=== PATIENT | male | born 1965 | race Caucasian/White ===

== ENCOUNTER 2016-09-01 11:19 | Emergency (ER) | payer OTHER ==
[~2016-09-01] VITALS: Ht 165.1 cm; Wt 70.3 kg
[~2016-09-01 11:19] MED LIST: AMOXICILLIN500 M2 PO; CYCLOBENZAPRINE10 MG PO; HYDROCODONE BIT1 T11 PO; IBU800 MG PO; MOTRIN800 MG PO; NAPROSYN500 MG PO; NKHM
[2016-09-01] MEDS ORDERED: CIPRODEX 0.3%-7.5 ML OT (12:21)
== END 2016-09-01 13:50 | disposition home or self-care (01) ==
LOC: ED 11:19
DX: H66.91 Otitis media, unspecified, right ear (principal)

== ENCOUNTER 2016-12-12 10:11 | Emergency (ER) | payer OTHER ==
[~2016-12-12] VITALS: Ht 165.1 cm; Wt 70.3 kg
[~2016-12-12 10:11] MED LIST changes: +CIPRODEX 0.3%-7.5 ML OT
[2016-12-12] MEDS ORDERED: Motrin,Rufen800 MG PO (13:11)
== END 2016-12-12 13:09 | disposition home or self-care (01) ==
LOC: ED 10:11
DX: R07.89 Other chest pain (principal); R07.81 Pleurodynia; R05 Cough; F17.200 Nicotine dependence, unspecified, uncomplicated

== ENCOUNTER → 2017-01-12 | Outpatient (CLI) | payer OTHER ==
[~2017-01-12] MED LIST changes: +Motrin,Rufen800 MG PO
[2017-01-12 15:18] LABS: ALBUMIN 4.2 gm/dl (3.1-4.5); ALKALINE PHOSPHATASE 74 U/L (45-117); BUN 13 mg/dl (7-24); CHLORIDE 102 mmol/L (98-107); CHOLESTEROL 269 mg/dL (<200); CREATININE 0.99 mg/dL (0.70-1.30); HDL CHOLESTEROL 72 mg/dl (40-60); LDL CHOLESTEROL 127 mg/dL (9-159); POTASSIUM 3.5 mmol/L (3.5-5.1); SGOT/AST 20 IU/L (3-35); SGPT/ALT 43 U/L (12-78); SODIUM 138 mmol/L (136-145); TOTAL PROTEIN 7.6 gm/dL (6.4-8.2); TRIGLYCERIDES 348 mg/dl (<150); VLDL CHOLESTEROL 70 mg/dL (6-40)
== END | disposition home or self-care (01) ==
LOC: LAB 14:25
PROVIDERS: Nurse Practitioner
DX: Z12.5 Encounter for screening for malignant neoplasm of prostate (principal); I10 Essential (primary) hypertension

== ENCOUNTER → 2017-05-18 | Outpatient (CLI) | payer OTHER ==
[2017-05-18 13:11] LABS: ALBUMIN 4.1 gm/dl (3.1-4.5); BILIRUBIN, DIRECT 0.2 mg/dL (0.0-0.2); TOTAL PROTEIN 7.4 gm/dL (6.4-8.2)
[2017-05-18 13:17] LABS: THYROID STIM HORMONE (HS) 2.02 uIU/ml (0.358-4.75)
== END | disposition home or self-care (01) ==
LOC: LAB 12:14
PROVIDERS: Nurse Practitioner
DX: E03.9 Hypothyroidism, unspecified (principal); E78.5 Hyperlipidemia, unspecified

== ENCOUNTER 2017-08-24 10:46 | Emergency (ER) | payer OTHER ==
[~2017-08-24] VITALS: Ht 162.5 cm; Wt 65.8 kg
[2017-08-24 11:07] LABS: BASO % 0.3 % (0.0-1.0); EOS % 0.1 % (1.0-4.0); HEMATOCRIT 46.3 % (42.0-52.0); HEMOGLOBIN 15.8 g/dl (14.0-18.0); LYMPH # 1.8 10*3/uL (1.3-4.4); LYMPH % 26.3 % (27.0-41.0); MEAN CELL VOLUME 93.7 fl (80.0-94.0); MEAN CORPUSCULAR HGB CONC 34.1 g/dl (33.0-37.0); MEAN PLATELET VOLUME 10.1 fl (9.6-12.3); MONO # 0.5 10*3/uL (0.1-1.0); MONO % 6.9 % (3.0-9.0); NEUT # 4.4 10*3/uL (2.3-7.9); NEUT % 65.8 % (47.0-73.0); PLATELET COUNT AUTOMATED 254 10*3/uL (130-400); RED BLOOD COUNT 4.94 10*6/uL (4.50-5.90); RED CELL DISTRI WIDTH 12.3 % (0-14.5); WHITE BLOOD COUNT 6.7 10*3/uL (4.8-10.8)
[2017-08-24 11:23] LABS: ALBUMIN 4.3 gm/dl (3.1-4.5); ALKALINE PHOSPHATASE 69 U/L (45-117); BUN 13 mg/dl (7-24); CHLORIDE 103 mmol/L (98-107); CREATININE 1.06 mg/dL (0.70-1.30); LIPASE 56 U/L (73-393); POTASSIUM 3.8 mmol/L (3.5-5.1); SGOT/AST 21 IU/L (3-35); SGPT/ALT 38 U/L (12-78); SODIUM 137 mmol/L (136-145); TOTAL PROTEIN 7.5 gm/dL (6.4-8.2)
[2017-08-24 11:24] LABS: TROPONIN I < 0.015 ng/ml (<0.045)
[2017-08-24] MEDS ORDERED: CARAFATE1 GM PO (11:29)
[2017-08-24] MEDS ORDERED: ZANTAC 150150 MG PO (11:29)
[2017-08-24] MEDS ORDERED: SUNMARK OMEPRAZ20 M1 PO (11:29)
[2017-08-24] MEDS ORDERED: ZOFRAN4 MG PO (11:29)
== END 2017-08-24 12:18 | disposition home or self-care (01) ==
LOC: ED 10:46
PROVIDERS: Nurse Practitioner Family
DX: K29.00 Acute gastritis without bleeding (principal); R03.0 Elevated blood-pressure reading, without diagnosis of hypertension; R10.13 Epigastric pain

== ENCOUNTER → 2018-09-01 | Day surgery (SDC) | payer OTHER ==
[~2018-09-01] VITALS: Ht 165.1 cm; Wt 71.7 kg
[~2018-09-01] MED LIST changes: +CARAFATE1 GM PO; +LISINOPRIL10 M1 PO; +PREDNISONE20 M1 PO; +SUNMARK OMEPRAZ20 M1 PO; +Synthroid,Levo25 MCG PO; +ZANTAC 150150 MG PO; +ZOFRAN4 MG PO
--- NOTE | ~2018-09-01 | O ---
[place], [place] OPERATIVE NOTE NAME: MUSA BUCHANAN UNIT #: [id number] ROOM: DOCTOR: ZEKE FERRARA MD BIRTHDATE: [birth year] DOS: 09/01/2018 GASTROENDOSCOPIC REPORT INDICATIONS: This is a 53-year-old patient who was presented with chief complaint of epigastric distress, dyspepsia. ALLERGIES: No known medication. FAMILY HISTORY: Noncontributory. PAST SURGICAL HISTORY: Jaw. PAST MEDICAL HISTORY: Hypertension, hypothyroidism. SOCIAL HISTORY: Aggressive alcohol consumption and tobacco chewing. PROCEDURE: Today's procedure part of investigation is panendoscopy plus biopsy. PREMEDICATION: Propofol. SCOPE: Olympus forward-viewing gastroscope Q10 video. REPORT: After putting the patient in left lateral position and application of lubricant to the scope, the scope was introduced. Thereafter, under direct visualization, advanced through the length of esophagus without difficulty. A 1+ esophageal varicosity at 2 o'clock position was noticed. Hiatal hernia appreciated. Gastric pouch was entered. Gastritis seen. Antral biopsy obtained. Duodenal bulb, second and third part within normal limits. The patient extubated, tolerated the procedure well. IMPRESSION: EGD status post biopsy, esophageal varicosity 1+, hiatal hernia small, gastritis, status post biopsy. PLAN AND DISCUSSION: Omeprazole 20 mg 1 every day. Advised extensively to abstain from chewing tobacco and drinking alcohol. He has partially responded so far. We will have more visits in the office. Workup in progress. We have to have more sitting advised with this gentleman to correct his chewing tobacco and aggressive consumption of alcohol history. Thank you very much indeed. [place], [place] OPERATIVE NOTE NAME: MUSA BUCHANAN UNIT #: [id number] ROOM: DOCTOR: ZEKE FERRARA MD BIRTHDATE: [birth year] ZEKE FERRARA MD CM:OPRECORD:OPERATIVE NOTE 1115 [id number] ZEKE FERRARA MD 09/01/18 1136 interface
[2018-09-01 09:15] VITALS: BP 170/84
[2018-09-01 11:08] VITALS: BP 122/78
[2018-09-01 11:25] VITALS: BP 131/83
[2018-09-01 11:39] VITALS: BP 110/91
== END | disposition home or self-care (01) ==
LOC: SDC 08-26 11:00
DX: K29.50 Unspecified chronic gastritis without bleeding (principal); I85.00 Esophageal varices without bleeding; K44.9 Diaphragmatic hernia without obstruction or gangrene; I10 Essential (primary) hypertension; E03.9 Hypothyroidism, unspecified; F32.9 Major depressive disorder, single episode, unspecified; F17.220 Nicotine dependence, chewing tobacco, uncomplicated; K21.9 Gastro-esophageal reflux disease without esophagitis; F10.10 Alcohol abuse, uncomplicated; Z98.890 Other specified postprocedural states; Z83.3 Family history of diabetes mellitus

== ENCOUNTER 2018-09-14 13:04 | Emergency (ER) | payer OTHER ==
[~2018-09-14] VITALS: Wt 70.3 kg
[~2018-09-14 13:04] MED LIST changes: -PREDNISONE20 M1 PO
[2018-09-14] MEDS ORDERED: PREDNISONE20 M1 PO (13:32)
[2018-09-14] MEDS ORDERED: AMOXICILLIN500 M2 PO (13:32)
== END 2018-09-14 13:35 | disposition home or self-care (01) ==
LOC: ED 13:04
DX: H65.91 Unspecified nonsuppurative otitis media, right ear (principal); Z79.899 Other long term (current) drug therapy

== ENCOUNTER 2019-05-25 10:27 | Emergency (ER) | payer OTHER ==
[~2019-05-25] VITALS: Ht 165.1 cm; Wt 68.0 kg
[~2019-05-25 10:27] MED LIST changes: +PREDNISONE20 M1 PO
[2019-05-25 10:59] LABS: BASO % 0.3 % (0.0-1.0); EOS % 0.1 % (1.0-4.0); HEMATOCRIT 48.6 % (42.0-52.0); HEMOGLOBIN 16.3 g/dl (14.0-18.0); LYMPH # 1.5 10*3/uL (1.3-4.4); LYMPH % 15.3 % (27.0-41.0); MEAN CELL VOLUME 94.9 fl (80.0-94.0); MEAN CORPUSCULAR HGB 31.8 pg (27.0-31.0); MEAN CORPUSCULAR HGB CONC 33.5 g/dl (33.0-37.0); MEAN PLATELET VOLUME 9.8 fl (9.6-12.3); MONO # 1.1 10*3/uL (0.1-1.0); MONO % 10.9 % (3.0-9.0); NEUT # 7.1 10*3/uL (2.3-7.9); NEUT % 72.9 % (47.0-73.0); PLATELET COUNT AUTOMATED 234 10*3/uL (130-400); RED BLOOD COUNT 5.12 10*6/uL (4.50-5.90); RED CELL DISTRI WIDTH 12.3 % (0-14.5); WHITE BLOOD COUNT 9.8 10*3/uL (4.8-10.8)
[2019-05-25 11:10] LABS: ACT PARTIAL THROMBO TIME 29.9 SECONDS (20.0-32.1); INTERNATIONAL NORM RATIO 0.9 (2.0-3.5)
[2019-05-25 11:23] LABS: ALBUMIN 4.1 gm/dl (3.1-4.5); ALKALINE PHOSPHATASE 98 U/L (45-117); BUN 12 mg/dl (7-24); CHLORIDE 99 mmol/L (98-107); CREATININE 1.25 mg/dL (0.70-1.30); LIPASE 62 U/L (73-393); POTASSIUM 4.4 mmol/L (3.5-5.1); SGOT/AST 23 IU/L (3-35); SGPT/ALT 37 U/L (12-78); SODIUM 135 mmol/L (136-145); TOTAL PROTEIN 7.8 gm/dL (6.4-8.2)
[2019-05-25 11:28] LABS: ETHYL ALCOHOL < 3.0 mg/dl (<3)
[2019-05-25] MEDS ORDERED: PRILOSEC20 M1 PO (11:30)
[2019-05-25 11:31] LABS: THYROID STIM HORMONE (HS) 0.919 uIU/ml (0.358-4.75)
== END 2019-05-25 11:40 | disposition home or self-care (01) ==
LOC: ED 10:27
PROVIDERS: Emergency Medicine
DX: K29.20 Alcoholic gastritis without bleeding (principal); Z79.899 Other long term (current) drug therapy

== ENCOUNTER 2019-10-26 23:38 | Emergency (ER) | payer SELFPAY ==
[~2019-10-26] VITALS: Wt 70.3 kg
[~2019-10-26 23:38] MED LIST changes: +PRILOSEC20 M1 PO
== END 2019-10-27 01:30 | disposition home or self-care (01) ==
LOC: ED 23:38
DX: S06.0X9A Concussion with loss of consciousness of unspecified duration, initial encounter (principal); S01.01XA Laceration without foreign body of scalp, initial encounter; F10.129 Alcohol abuse with intoxication, unspecified; F32.9 Major depressive disorder, single episode, unspecified; I10 Essential (primary) hypertension; K21.9 Gastro-esophageal reflux disease without esophagitis; Z79.899 Other long term (current) drug therapy; W22.8XXA Striking against or struck by other objects, initial encounter; Y93.89 Activity, other specified; Y92.89 Other specified places as the place of occurrence of the external cause; Y99.8 Other external cause status

== ENCOUNTER 2019-11-02 12:47 | Emergency (ER) | payer SELFPAY ==
[~2019-11-02] VITALS: Ht 165.1 cm; Wt 70.3 kg
== END 2019-11-02 14:30 | disposition home or self-care (01) ==
LOC: ED 12:47
DX: Z48.02 Encounter for removal of sutures (principal); F32.9 Major depressive disorder, single episode, unspecified; I10 Essential (primary) hypertension; K21.9 Gastro-esophageal reflux disease without esophagitis; Z79.899 Other long term (current) drug therapy

== ENCOUNTER 2023-01-21 11:42 | Emergency (ER) | payer OTHER ==
[~2023-01-21] VITALS: Wt 70.3 kg
[2023-01-21] MEDS ORDERED: ZESTRIL10 MG PO (12:16)
== END 2023-01-21 13:35 | disposition home or self-care (01) ==
LOC: ED 11:42
DX: I10 Essential (primary) hypertension (principal); Z76.0 Encounter for issue of repeat prescription; F32.A Depression, unspecified; K21.9 Gastro-esophageal reflux disease without esophagitis; Z98.890 Other specified postprocedural states